=== PATIENT | female | born 1950 | race Caucasian/White ===

== ENCOUNTER 2020-02-17 05:39 | Outpatient (CLI) | payer MEDICARE ==
[~2020-02-17] VITALS: Ht 175.3 cm; Wt 76.8 kg
[2020-02-17] MEDS ORDERED: ZOLP5TAB PO (09:52)
== END 2020-02-17 10:06 ==
LOC: PREOP 05:39
PROVIDERS: ATTEND Surgery
DX: Z01.818 Encounter for other preprocedural examination (principal)

== ENCOUNTER 2020-02-19 09:48 | Day surgery (SDC) | payer MEDICARE, OTHER ==
[~2020-02-19] VITALS: Ht 175.3 cm; Wt 76.8 kg
[2020-02-19] VITALS (13 sets, daily range): BP systolic 114–182; BP diastolic 65–91
[~2020-02-19 09:48] MED LIST: ZOLP5TAB PO
[2020-02-19] MEDS ORDERED: NS IV 500 ML 500 ML ONE (09:51)
[2020-02-19] MEDS ORDERED: NS IV 500 ML 500 ML IV PRN (09:54)
[2020-02-19] MEDS ORDERED: MELO7.5T46 PO (09:59)
[2020-02-19] MEDS ORDERED: MIDAZOLAM 5 MG/5 ML (VERSED) VIAL IV ONE (10:00)
[2020-02-19] MEDS ORDERED: LIDOCAINE JELLY 2% 6 ML SYRINGE MM PRN (10:00)
[2020-02-19] MEDS ORDERED: fentaNYL INJECTION 100 MCG/2 ML AMP IVP ONE (10:00)
--- NOTE | 2020-02-19 10:33 | Conscious Sedation/ASA ---
Conscious Sedation Pre-Proced Time 10:00 ASA Score 2 For ASA 3 and 4: Consider anesthesia and medical clearance. Also, for patients with a history of failed moderate sedation consider anesthesia. Airway Lungs Heart ASA score ASA 1: a normal healthy patient ASA 2: a patient with a mild systemic disease (mid diabetes, controlled hypertension, obesity ASA 3: a patient with a severe systemic disease that limits activity (angina, COPD, prior Myocardial infarction) ASA 4: a patient with an incapacitating disease that is a constant threat to life (CHF, renal failure) ASA 5: a moribund patient not expected to survive 24 hrs. (ruptured aneurysm) ASA 6: a declared brain- patient whose organs are being harvested. For emergent operations, add the letter E after the classification Mallampati Classification Grade 2 Sedation Plan Analgesia, Amnesia, Plan communicated to team members, Discussed options with patient/fam, Discussed risks with patient/fam The patient is an appropriate candidate to undergo the planned procedure, sedation, and anesthesia. The patient immediately re-assessed prior to indication. ISABELLA WAY MD Feb 19, 2020 10:33
--- NOTE | 2020-02-19 10:34 | Progress Note-Pre Operative ---
Pre-Operative Progress Note H&P Reviewed The H&P was reviewed, patient examined and no changes noted. Date Seen by Provider: Feb 19, 2020 Time Seen by Provider: 10:00 Date H&P Reviewed: Feb 19, 2020 Time H&P Reviewed: 10:00 Pre-Operative Diagnosis: screening/+ colmarileed ISABELLA WAY MD Feb 19, 2020 10:34
--- NOTE | 2020-02-19 10:35 | Discharge Inst-Surgical ---
D/C Lap Instructions-RAYNA Follow Up Activity as tolerated High Fiber Diet 25g or more per day Avoid Alcohol, Caffeine, Spicy [place] and Acid foods. Drink 64 fluid oz or more of fluids per day. Symptoms to Report: Fever over 101 degree F, Nausea/Vomiting If any problems/questions: Contact your physician or go to Emergency Room ISABELLA WAY MD Feb 19, 2020 10:35
[2020-02-19] MEDS ORDERED: ACETAMINOPHEN 325 MG TABLET PO PRN (10:45)
[2020-02-19] MEDS ORDERED: HYDROcodone/APAP 5 MG/325 MG (LORTAB) TAB PO PRN (10:45)
[2020-02-19] MEDS ORDERED: ONDANSETRON 4 MG (ZOFRAN) ORAL DISSOLVE TAB PO PRN (10:45)
[2020-02-19] MEDS ORDERED: morphine INJ 10 MG/ML 1ML (SYR OR VIAL) IVP PRN ×2 (10:45)
[2020-02-19] MEDS ORDERED: LIDOCAINE JELLY 2% 6 ML SYRINGE ONE (11:27)
[2020-02-19] MEDS ORDERED: fentaNYL INJECTION 100 MCG/2 ML AMP ONE (11:28)
[2020-02-19] MEDS ORDERED: MIDAZOLAM 5 MG/5 ML (VERSED) VIAL ONE ×2 (11:28)
--- NOTE | 2020-02-19 12:48 | Progress Note-Post Operative ---
Post-Operative Progess Note Surgeon (s)/Driveway Sealer (s) Surgeon ISABELLA WAY MD Driveway Sealer: none Pre-Operative Diagnosis screening/+ cologaurd Post-Operative Diagnosis chronic stage 2 ext and int hemorrhoids, mild-mod sigmoid diverticulosis. Procedure & Operative Findings Date of Procedure 02/19/20 Procedure Performed/Findings colonoscopy Anesthesia Type cs Estimated Blood Loss Estimated blood loss (mL): minimal Specimens/Packing Specimens Removed none ISABELLA WAY MD Feb 19, 2020 12:48
--- NOTE | 2020-02-19 14:23 | OPERATIVE REPORT ---
DATE OF SERVICE: 02/19/2020 ATTENDING PRIMARY CARE PHYSICIAN: Carrillo Whitehead DO PREOPERATIVE DIAGNOSIS: Screening colonoscopy with a positive Cologuard test. POSTOPERATIVE DIAGNOSES: Mild chronic stage II external and internal hemorrhoids, mild to moderate sigmoid diverticulosis. PROCEDURE: Colonoscopy. SURGEON: Isabella Way MD ANESTHESIA: Conscious sedation. ESTIMATED BLOOD LOSS: Minimal. FINDINGS: Mild chronic stage II external and internal hemorrhoids, mild to moderate sigmoid diverticulosis. DISPOSITION: The patient tolerated the procedure well. INDICATIONS: The patient is a 69-year-old female referred over to us for screening colonoscopy. Last colonoscopy was approximately 9 to 10 years ago and she believes that to be normal. She also did undergo recent Cologuard test, which was positive for occult blood. She states that she is otherwise doing well, does not report any major issues with diarrhea nor constipation as well as no red blood per rectum nor any dark tarry stools. She also does not report any family history of colon cancer. DESCRIPTION OF PROCEDURE: The patient was brought to the endoscopy suite, laid in the left lateral decubitus position. After adequate IV pain and sedative medications and conscious sedation anesthesia, digital rectal examination was performed. Mild chronic stage II external and internal hemorrhoids were identified, which were not actively edematous nor inflamed and no bleeding. Normal sphincter tone was felt and there were no palpable masses. The endoscope was then intubated to the anus and rectum gently insufflated. The endoscope was then advanced through the valves of Rod of the rectum with no polyps or any neoplasms identified. Through the sigmoid colon, a mild to moderate diverticulosis identified with no mucosal inflammatory change to indicate any active diverticulitis. The endoscope was then advanced to the remainder of the descending, transverse and ascending colon to the cecum. These segments were normal. The endoscope was then slowly withdrawn while taking a second look and suctioning of residual air with no additional findings. The patient tolerated the procedure well. We will recommend medical management with a high fiber diet with at least 25 grams of fiber daily as well as significant amounts of water to promote soft stools on a daily basis. If she is asymptomatic, she does not need another colonoscopy for another 10 years. Job ID: [id number] DocumentID: [id number] Dictated Date: 02/19/2020 12:32:28 Immigration Coordinator Date: 02/19/2020 14:22:27 Dictated By: ISABELLA WAY MD
== END 2020-02-19 13:04 | disposition home or self-care (01) ==
LOC: ENDO 09:48
PROVIDERS: ATTEND Surgery
DX: Z12.11 Encounter for screening for malignant neoplasm of colon (principal); K64.1 Second degree hemorrhoids; K57.30 Diverticulosis of large intestine without perforation or abscess without bleeding; R19.5 Other fecal abnormalities; G47.00 Insomnia, unspecified; J18.9 Pneumonia, unspecified organism; Z79.899 Other long term (current) drug therapy; Z87.891 Personal history of nicotine dependence; Z83.3 Family history of diabetes mellitus

== ENCOUNTER → 2020-08-19 | Outpatient (CLI) | payer MEDICARE ==
[~2020-08-19] MED LIST changes: +MELO7.5T46 PO
[2020-08-19 17:26] LABS: BASOPHILS % (AUTO) 1 % (0-10); EOSINOPHILS % (AUTO) 3 % (0-10); HEMATOCRIT 39 % (35-52); HEMOGLOBIN 13.2 G/DL (11.5-16.0); LYMPHOCYTES # (AUTO) 2.6 X 10^3 (1.0-4.0); LYMPHOCYTES % (AUTO) 26 % (12-44); MEAN CORPUSCULAR HEMOGLOBIN 33 PG (25-34); MEAN CORPUSCULAR HGB CONC 34 G/DL (32-36); MEAN CORPUSCULAR VOLUME 97 FL (80-99); MEAN PLATELET VOLUME 11.7 FL (7.4-10.4); MONOCYTES % (AUTO) 9 % (0-12); NEUTROPHILS % (AUTO) 61 % (42-75); PLATELET COUNT 183 10^3/uL (130-400); WHITE BLOOD COUNT 9.7 10^3/uL (4.3-11.0)
[2020-08-19 17:27] LABS: BASOPHILS # (AUTO) 0.1 10^3/uL (0.0-0.1); BILIRUBIN,TOTAL 0.3 MG/DL (0.1-1.0); BUN/CREATININE RATIO 21; CALCIUM 9.3 MG/DL (8.5-10.1); CARBON DIOXIDE 27 MMOL/L (21-32); CHLORIDE 106 MMOL/L (98-107); CREATININE SERUM 0.73 MG/DL (0.60-1.30); EOSINOPHILS # (AUTO) 0.2 10^3/uL (0.0-0.3); GFR ESTIMATED > 60; GLUCOSE 96 MG/DL (70-105); MONOCYTES # (AUTO) 0.9 X 10^3 (0.0-1.0); POTASSIUM 4.1 MMOL/L (3.6-5.0); SODIUM 141 MMOL/L (135-145)
[2020-08-19 17:28] LABS: ALANINE AMINOTRANSFERASE 12 U/L (0-55); ALBUMIN 4.2 GM/DL (3.2-4.5); ALKALINE PHOSPHATASE 90 U/L (40-136); TOTAL PROTEIN 6.5 GM/DL (6.4-8.2)
== END ==
LOC: LAB FS 15:49
PROVIDERS: ATTEND Nurse Practitioner Family
DX: I82.811 Embolism and thrombosis of superficial veins of right lower extremity (principal)
CPT/HCPCS: 36415; 80053; 85025; 85379

== ENCOUNTER → 2020-10-08 | Outpatient (CLI) | payer MEDICARE ==
--- NOTE | 2020-10-08 16:09 | Diagnostic Imaging Report ---
INDICATION: Bilateral leg pain Bilateral ankle brachial indices were obtained. Pressures were recorded in the brachial arteries bilaterally and in the dorsalis pedis and posterior tibial arteries of the ankle. The KAYLA on the right is 1.1. KAYLA on the left is 1.07. IMPRESSION: Normal bilateral ankle brachial indices. Dictated by: Dictated on workstation # [id number]
--- NOTE | 2020-10-08 16:56 | Diagnostic Imaging Report ---
PROCEDURE: US Bilateral lower extremity arterial. TECHNIQUE: Multiple real-time grayscale images are obtained through both lower extremity arterial systems with color Doppler imaging and color Doppler spectral analysis. INDICATION: Pain in the bilateral lower extremities. COMPARISON: None FINDINGS: Right lower extremity: There is atherosclerosis in the right lower extremity. The common femoral artery measures 93 cm/s and there is a triphasic waveform. The deep femoral artery has a triphasic waveform and measures 75 cm/s. The superficial femoral artery (SFA) measures 102 cm/s proximally with a triphasic waveform. The mid SFA has a triphasic waveform and measures 97 cm/s. The distal SFA has a triphasic waveform and measures 96 cm/s. The right popliteal artery has a triphasic waveform and measures 199 cm/s. There is focal atherosclerosis at this level which appears to cause about 50% narrowing visually. The distal posterior tibial artery has a biphasic waveform and measures 79 cm/s. The dorsalis pedis has a biphasic waveform and measures 65 cm/s. The anterior tibial artery has a biphasic waveform and measures 51 cm/s. Left lower extremity: There is atherosclerosis in the left lower extremity. The common femoral artery has a triphasic waveform and measures 96 cm/s. The deep femoral artery has a triphasic waveform and measures 82 cm/s. The proximal SFA has a calcified shadowing plaque and a triphasic waveform measuring 101 cm/s. The mid SFA has a biphasic waveform measuring 87 cm/s. The distal SFA has a biphasic waveform and measures 82 cm/s. Popliteal artery has a biphasic waveform and measures 68 cm/s. The posterior tibial artery has a biphasic waveform and measures 62 cm/s. The dorsalis pedis has a biphasic waveform and measures 54 cm/s. The anterior tibial artery has a biphasic waveform and measures 51 cm/s. IMPRESSION: 1. Mild atherosclerosis in the bilateral lower extremities. 2. About 50% stenosis in the right popliteal artery without diminished flow seen distally. Dictated by: Dictated on workstation # [id number]
== END ==
LOC: RAD 09:24
PROVIDERS: ATTEND Nurse Practitioner Family
DX: I70.203 Unspecified atherosclerosis of native arteries of extremities, bilateral legs (principal); Z87.891 Personal history of nicotine dependence
CPT/HCPCS: 93922; 93925